=== PATIENT | female | born 1995 | race Caucasian/White ===

== ENCOUNTER 2019-06-24 05:06 | Emergency (ER) | payer SELFPAY ==
[2019-06-24] MEDS ORDERED: ACETAMINOPHEN 500 MG TAB ONE (05:27)
[2019-06-24] MEDS ORDERED: IBUPROFEN 200 MG TAB PO ONE (05:27)
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
[2019-06-24 08:22] VITALS: TEMP 97.9
[2019-06-24 08:26] VITALS: BP 122/81; O2SAT 100
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
== END 2019-06-24 08:17 | disposition home or self-care (01) ==
LOC: ER 05:06
DX: S70.211A Abrasion, right hip, initial encounter (principal); V49.49XA Driver injured in collision with other motor vehicles in traffic accident, initial encounter
CPT/HCPCS: 71045; 72170; 99284